=== PATIENT | female | born 2000 | race Caucasian/White ===

== ENCOUNTER 2024-07-28 17:42 | Emergency (ER) | payer OTHER, MEDICAID, SELFPAY ==
[2024-07-28] VITALS (10 sets, daily range): BP systolic 114–129; BP diastolic 64–75; PULSE 77–89; RESP 12–21; TEMP 36.8; O2SAT 100; BMI 36.9
--- NOTE | 2024-07-28 18:45 | EKG_ITS ---
[address] [address] Test Date: 2024-07-28 Pat Name: Anita Thakkar Department: [facility] Room: Gender: Female Mental Health Unit Lead Psychologist: JAMAR : 2000 Requested By: Order Number: [id number] Reading MD: Andrey Vivas Measurements Intervals [place] Rate: 77 P: 39 TX: 158 QRS: 35 QRSD: 80 T: 34 QT: 426 QTc: 482 Interpretive Statements Normal sinus rhythm Prolonged QT Electronically Signed On 07-30-2024 18:05:39 PDT by Andrey Vivas
[2024-07-28 19:39] LABS: Bacteria Urine Many (>30); Culture Indicated Urine Cult Not Indicated; RBC Urine 0-1/HPF (0-5/HPF); Squamous Epithelial Cell Urine 5-10 /HPF (0-5/HPF); Urine Volume 10mL (spun); WBC Urine 0-1/HPF (0-5/HPF)
--- NOTE | 2024-07-28 20:20 | ED.DIZZY ---
HPI - Dizziness General Chief Complaint: Dizziness Stated Complaint: syncope/left ear numbness Time Seen by Provider: 07/28/24 17:57 Source: patient Mode of arrival: EMS History of Present Illness HPI Narrative: Patient is a 24-year-old female without significant history presenting today with a near syncopal episode. She reports that she was feeling well today until she got to work. She was walking down home when she had a near syncopal episode. She felt like she was going to pass out but did not. No significant chest pain or palpitations. She does not feel quite right a little bit lightheaded. She has been eating and drinking normally. Did not feel like she could walk had some tingling. No fever chills. Was complaining of some left ear numbness and irritation. No significant pain or fever Related Data Allergies Allergy/AdvReac Type Severity Reaction Status Date / Time No Known Drug Allergies Allergy Verified 07/28/24 17:57 Patient History Social History Smoking Status: Never smoker Smoking Status: Never smoker alcohol intake frequency: other Substance Use Type: does not use Exam Initial Vital Signs Initial Vital Signs: Vital Signs Temperature 98.3 F 07/28/24 17:52 Pulse Rate 83 07/28/24 17:52 Respiratory Rate 18 07/28/24 17:52 Blood Pressure 128/73 07/28/24 17:52 Pulse Oximetry 100 07/28/24 17:52 Oxygen Delivery Method Room Air 07/28/24 17:52 GENERAL: Alert 24-year-old female and in no acute distress. HEENT: Head atraumatic,EOMI, pupils reactive, face symmetric, moist mucous membranes CARDIOVASCULAR: Regular rate and rhythm without murmurs, rubs or gallops. RESPIRATORY: Breath sounds equal bilaterally, no wheezes rales or rhonchi. ABDOMEN: Soft, nontender. Normoactive bowel sounds all 4 quadrants. No guarding or rebound. EXTREMITIES: Normal range of motion, no clubbing or edema. Neurovascularly intact NEUROLOGICAL: Alert and oriented x4.Normal gait and speech. Cranial nerves II through XII grossly intact. Good [id number], good [id number], strength equal bilaterally, no dysarthria or aphasia, sensation in tact to soft touch bilaterally, no visual changes, no facial droop SKIN: Warm, dry, no laceration, no petechiae, no rashes or lesions. Course Orders Ordered: ED Orders 07/28/24 18:45 EKG-12 Lead Stat 07/28/24 19:18 Urine Microscopic Stat 07/28/24 20:24 Covid-19 + FLU A/B + RSV - PCR Stat 07/28/24 21:14 CBC Auto Diff [Complete Blood Count AUTO DIFF] Stat CMP [Comprehensive Metabolic Panel] Stat Vital Signs Vital signs: Vital Signs - 8 hr 07/28/24 19:00 07/28/24 19:00 07/28/24 19:30 Pulse Rate 81 79 Respiratory Rate 21 19 Blood Pressure 117/64 Pulse Oximetry 100 100 Oxygen Delivery Method 07/28/24 19:30 07/28/24 20:00 07/28/24 20:00 Pulse Rate 79 Respiratory Rate 12 Blood Pressure 114/71 129/75 Pulse Oximetry 100 Oxygen Delivery Method 07/28/24 20:30 07/28/24 21:00 07/28/24 21:30 Pulse Rate 89 83 80 Respiratory Rate 19 20 19 Blood Pressure Pulse Oximetry 100 100 100 Oxygen Delivery Method Room Air 07/28/24 22:00 07/28/24 22:08 Pulse Rate 77 Respiratory Rate 14 Blood Pressure 119/74 Pulse Oximetry 100 Oxygen Delivery Method MDM - Dizziness Lab Data 07/28/24 21:14 07/28/24 21:14 Labs: Lab Results 07/28/24 07/28/24 07/28/24 Range/Units 19:18 20:24 21:14 WBC 7.7 (4.5-11.0) X10^3/uL RBC 4.74 (4.0-5.2) X10^6/uL Hgb 13.6 (12.0-16.0) g/dL Hct 40.8 (36-46) % MCV 86.2 (80-100) fL MCH 28.8 (26-34) PG MCHC 33.3 (30-36) % RDW 13.4 (11.6-14.8) % Plt Count 346 (150-400) X10^3/uL Neut % (Auto) 45.4 L (50-75) % Lymph % (Auto) 46.5 H (25-40) % Rock % (Auto) 7.1 (3-14) % Eos % (Auto) 0.6 L (2-4) % Baso % (Auto) 0.4 (0-2) % Neut # (Auto) 3500 (0216-4622) /uL Lymph # (Auto) 3600 (9640-8213) /uL [place] # (Auto) 500 (0-900) /uL Eos # (Auto) 0 (0-450) /uL Baso # (Auto) 0 (0-100) /uL Sodium 139 (137-145) mmol/L Potassium 3.9 (3.4-5.1) mmol/L Chloride 105 (98-107) mmol/L Carbon Dioxide 25 (22-32) mmol/L BUN 15 (7-17) mg/dL Creatinine 0.70 (0.52-1.04) mg/dL Estimated GFR > 60 (>60) mL/min BUN/Creatinine Ratio 21.4 (6-22) Glucose 83 (70-100) mg/dL Calcium 9.0 (8.4-10.2) mg/dL Total Bilirubin 0.7 (0.2-1.3) mg/dL AST 26 (14-36) IU/L ALT 20 (<35) IU/L Alkaline Phosphatase 97 (38-126) U/L Total Protein 8.2 (6.3-8.2) g/dL Albumin 4.2 (3.5-5.0) g/dL Globulin 4.0 (1.7-4.1) g/dL Albumin/Globulin Ratio 1.1 (1.0-2.8) Urine RBC 0-1/hpf (0-5/HPF) Urine WBC 0-1/hpf (0-5/HPF) Ur Squamous Epith Cells 5-10 /hpf H (0-5/HPF) Urine Bacteria Many (>30) H (None) Ur Culture Indicated? Cult not indicated Vol Urine Centrifuged 10ml (spun) SARS-CoV-2 (PCR) Negative (Negative) Influenza A (RT-PCR) Flu a negative (NEGATIVE) Influenza B (RT-PCR) Flu b negative (NEGATIVE) RSV (PCR) Negative (Negative) Point of Care Testing Test Results Negative Urine Dip Bedside Urine Glucose Negative Bedside Urine Bilirubin - Negative Bedside Urine Ketone - Negative Urine Specific [place] 1.030 Bedside Urine Occult Blood +/- Bedside Urine pH 6.0 Bedside Urine Protein - Negative Bedside Urine Urobilinogen - Negative Bedside Urine Nitrite - Negative Bedside Urine Leukocytes - Negative Esterase ECG Data Attestation: I personally reviewed and interpreted this ECG as follows: Prior ECG tracings: available for review Interpretation: Normal sinus rhythm rate 77 [place] interval 158 QRS [address] changes MDM Narrative Medical decision making narrative: 24-year-old female presenting today with a near syncopal episode. She overall feels weak feels like her legs are work tatyana. She is able with both legs off the gurney equally weak can closing machine tender strength is equal bilaterally. She has no evidence of otitis or infection. Urinalysis is negative viral panel is negative. No leukocytosis or electrolyte abnormality At this time I think she had a near syncopal episode supportive care only Discharge Plan Departure Patient Disposition: Home Clinical Impression: Near syncope Instructions: DI for Syncope in Adults (Fainting) Activity Restrictions/Additional Instructions: *You have been diagnosed with near syncope *What to do: At this time increase fluids eat regularly *Continue to take medications as directed *Follow up with your primary care provider in 2-3 days or call [phone] *Return to ER if you should have recurrent episode of passing out or any new, worsening or concerning symptoms Stand Alone Forms: Patient Portal/API
[2024-07-28 21:04] LABS: Influenza A - CEPHEID Flu A NEGATIVE (NEGATIVE); Influenza B - CEPHEID Flu B NEGATIVE (NEGATIVE); Respiratory Syncytial Virus Negative (Negative)
[2024-07-28 21:19] LABS: COVID-19 CEPHEID 4-PLEX PCR Negative (Negative)
[2024-07-28 21:29] LABS: Add Manual Diff / Slide Review NO; Basophils Absolute Auto 0 /uL (0-100); Basophils Percent Auto 0.4 % (0-2); Eosinophils Absolute Auto 0 /uL (0-450); Eosinophils Percent Auto 0.6 % (2-4); Hematocrit 40.8 % (36-46); Hemoglobin 13.6 g/dL (12.0-16.0); Lymphocytes Absolute Auto 3600 /uL (1100-4500); Lymphocytes Percent Auto 46.5 % (25-40); Mean Corpuscular HGB Conc 33.3 % (30-36); Mean Corpuscular Hemoglobin 28.8 PG (26-34); Mean Corpuscular Volume 86.2 fL (80-100); Monocytes Absolute Auto 500 /uL (0-900); Monocytes Percent Auto 7.1 % (3-14); Neutrophils Absolute Auto 3500 /uL (1500-7000); Neutrophils Percent Auto 45.4 % (50-75); Platelet Count 346 X10^3/uL (150-400); Red Blood Cell Count 4.74 X10^6/uL (4.0-5.2); Red Cell Distribution Width 13.4 % (11.6-14.8); White Blood Cell Count 7.7 X10^3/uL (4.5-11.0)
[2024-07-28 21:51] LABS: Alanine Aminotransferase 20 IU/L (<35); Albumin 4.2 g/dL (3.5-5.0); Albumin Globulin Ratio 1.1 (1.0-2.8); Alkaline Phosphatase 97 U/L (38-126); Aspartate Aminotransferase 26 IU/L (14-36); BUN Creatinine Ratio 21.4 (6-22); Bilirubin Total 0.7 mg/dL (0.2-1.3); Blood Urea Nitrogen 15 mg/dL (7-17); Carbon Dioxide 25 mmol/L (22-32); Chloride 105 mmol/L (98-107); Estimated Glomerular Filt Rate > 60 mL/min (>60); Glucose 83 mg/dL (70-100); HEMOLYSIS < 15 (0-50); Potassium 3.9 mmol/L (3.4-5.1); Sodium 139 mmol/L (137-145); Total Protein 8.2 g/dL (6.3-8.2)
== END 2024-07-28 22:09 | disposition home or self-care (01) ==
PROVIDERS: Emergency Provider Emergency Medicine
DX: R55 Syncope and collapse (principal); R07.9 Chest pain, unspecified; Z11.52 Encounter for screening for COVID-19
CPT/HCPCS: 0241U; 36415; 80053; 81003; 81015; 81025; 85025; 93005; 99283; 99284

== ENCOUNTER 2024-10-15 20:11 | Emergency (ER) | payer OTHER, SELFPAY ==
[2024-10-15 20:15] VITALS: BP 129/84; PULSE 81; RESP 18; TEMP 36.5; O2SAT 98; BMI 36.9
--- NOTE | 2024-10-15 20:36 | DI.US.S_ITS ---
PROCEDURE: US PELVIC COMPLETE INDICATIONS: ABNORMAL BLEEDING TECHNIQUE: Real-time scanning was performed of the pelvic organs, with image documentation. Additional endovaginal scanning was necessary due to incomplete visualization of the adnexal and endometrial structures by transabdominal scanning. COMPARISON: None. FINDINGS: Uterus: Uterus is anteverted and normal in size at 6.7 x 3.7 x 4.9 cm. The myometrium is homogeneous. The endometrium measures 4.1 mm combined thickness. Ovaries: The right ovary measures 3.1 x 2.3 x 2.1 cm, with a calculated ovarian volume of 7.7 cc. The left ovary measures 3.4 x 4.7 x 3.3 cm, with a calculated ovarian volume of 27.6 cc. The ovaries have a normal sonographic appearance. Less than 12 follicles can be seen in each ovary. No adnexal masses are seen. There is a simple left ovarian cyst measuring up to 2.8 cm. Other: No pathologic free abdominal or pelvic fluid. IMPRESSION: Normal pelvic ultrasound. Approved by: Ophelia Floyd M.D.,Ph.D. on 10/15/2024 at 22:36
[2024-10-15 20:59] LABS: Bacteria Urine None Seen; Culture Indicated Urine Cult Not Indicated; RBC Urine 30-100/HPF (0-5/HPF); Squamous Epithelial Cell Urine 1-5 /HPF (0-5/HPF); Urine Volume 10mL (spun); WBC Urine None Seen (0-5/HPF)
[2024-10-15 21:15] LABS: Add Manual Diff / Slide Review NO; Basophils Absolute Auto 0 /uL (0-100); Basophils Percent Auto 0.6 % (0-2); Eosinophils Absolute Auto 100 /uL (0-450); Eosinophils Percent Auto 0.7 % (2-4); Hematocrit 41.1 % (36-46); Hemoglobin 13.7 g/dL (12.0-16.0); Lymphocytes Absolute Auto 3500 /uL (1100-4500); Lymphocytes Percent Auto 47.7 % (25-40); Mean Corpuscular HGB Conc 33.3 % (30-36); Mean Corpuscular Hemoglobin 28.7 PG (26-34); Mean Corpuscular Volume 86.1 fL (80-100); Monocytes Absolute Auto 600 /uL (0-900); Monocytes Percent Auto 7.6 % (3-14); Neutrophils Absolute Auto 3200 /uL (1500-7000); Neutrophils Percent Auto 43.4 % (50-75); Platelet Count 306 X10^3/uL (150-400); Red Blood Cell Count 4.77 X10^6/uL (4.0-5.2); Red Cell Distribution Width 13.1 % (11.6-14.8); White Blood Cell Count 7.3 X10^3/uL (4.5-11.0)
[2024-10-15 21:21] LABS: BUN Creatinine Ratio 17.9 (6-22); Blood Urea Nitrogen 12 mg/dL (7-17); Carbon Dioxide 23 mmol/L (22-32); Chloride 106 mmol/L (98-107); Estimated Glomerular Filt Rate > 60 mL/min (>60); Glucose 89 mg/dL (70-100); HEMOLYSIS < 15 (0-50); Potassium 3.8 mmol/L (3.4-5.1); Sodium 137 mmol/L (137-145)
--- NOTE | 2024-10-15 22:12 | ED_ITS ---
HPI - Female Genitourinary General Chief complaint: Vaginal Bleeding Stated complaint: passing blood clots, abnormal vaginal bleed Time Seen by Provider: 10/15/24 20:15 Source: patient and RN notes reviewed Mode of arrival: Ambulatory Limitations: no limitations History of Present Illness HPI Narrative: 24-year-old female report of vaginal bleeding and abdominal discomfort. Patient states she has had lower abdominal pain bilaterally for the past 3 days. States started out with some brownish discharge and had increasing bleeding today with clots. States she has had an Implanon for 2 years and did not have any bleeding for quite some time but then has had some intermittent spotting and bleeding on and off. She states she did see some clots today. States no back or flank pain. She denies any fevers or chills. She has had some mild nausea no vomiting no issues with bowel movements, she was little bit increased urinary frequency but no dysuria or sense of urgency. Patient states no concerns for STIs. Patient states no daily prescription medications does use an inhaler as needed. Had cholecystectomy 5 years ago. States allergic to morphine and develops difficulty breathing and rash as well as shellfish. Does use tobacco daily, states no regular alcohol, no recreational drugs. Related Data Allergies Allergy/AdvReac Type Severity Reaction Status Date / Time shellfish derived Allergy Severe Anaphylaxis Verified 10/15/24 20:19 morphine Allergy Rash Verified 10/15/24 20:19 Review of Systems Review of Systems ROS Unobtainable: All systems reviewed & are unremarkable except as noted in HPI and below Exam Narrative Exam Narrative: GENERAL: Alert and oriented x three, female in mild distress. HEENT: Head normocephalic, atraumatic, EOMI, pupils reactive, face symmetric, moist mucous membranes NECK: Supple, full range of motion CARDIOVASCULAR: Regular rate and rhythm without murmurs, rubs or gallops. RESPIRATORY: Breath sounds equal bilaterally, no wheezes rales or rhonchi. ABDOMEN: Soft, nontender. Normoactive bowel sounds all 4 quadrants. No guarding or rebound, rigidity, no mass : No CVA tenderness EXTREMITIES: Normal range of motion, no clubbing or edema. Neurovascularly intact NEUROLOGICAL: Cranial nerves II through XII grossly intact. Moving all extremities SKIN: Warm, dry, no petechiae, no rashes or lesions. Initial Vital Signs Initial Vital Signs: Vital Signs Temperature 97.7 F 10/15/24 20:15 Pulse Rate 81 10/15/24 20:15 Respiratory Rate 18 10/15/24 20:15 Blood Pressure 129/84 10/15/24 20:15 Pulse Oximetry 98 10/15/24 20:15 Oxygen Delivery Method Room Air 10/15/24 20:15 Course Orders Ordered: ED Orders 10/15/24 20:30 Urine Microscopic Stat 10/15/24 20:36 US pelvic complete Stat 10/15/24 20:58 Basic Metabolic Panel Stat Complete Blood Count AUTO DIFF Stat Type and Screen Stat Discontinued Medications Acetaminophen (Acetaminophen 325 Mg Tablet) 975 mg PO NOW ONE Stop: 10/15/24 22:24 Last Admin: 10/15/24 22:34 Dose: 975 mg Documented By: SHAYAN Ibuprofen (Ibuprofen 400 Mg Tablet) 800 mg PO NOW ONE Stop: 10/15/24 22:24 Last Admin: 10/15/24 22:34 Dose: 800 mg Documented By: SHAYAN Ondansetron HCl (Ondansetron 4 Mg Odt) 4 mg SL NOW ONE Stop: 10/15/24 22:24 Last Admin: 10/15/24 22:34 Dose: 4 mg Documented By: SHAYAN Vital Signs Vital signs: Vital Signs - 8 hr 10/15/24 20:15 10/15/24 22:59 10/15/24 22:59 Temperature 97.7 F Pulse Rate 81 73 Respiratory Rate 18 Blood Pressure 129/84 110/71 Pulse Oximetry 98 100 Oxygen Delivery Method Room Air 10/15/24 23:00 10/15/24 23:00 Temperature Pulse Rate 69 Respiratory Rate Blood Pressure 109/68 Pulse Oximetry 100 Oxygen Delivery Method MDM - Female Genitourinary Lab Data 10/15/24 20:58 10/15/24 20:58 Labs: Lab Results 10/15/24 10/15/24 Range/Units 20:30 20:58 WBC 7.3 (4.5-11.0) X10^3/uL RBC 4.77 (4.0-5.2) X10^6/uL Hgb 13.7 (12.0-16.0) g/dL Hct 41.1 (36-46) % MCV 86.1 (80-100) fL MCH 28.7 (26-34) PG MCHC 33.3 (30-36) % RDW 13.1 (11.6-14.8) % Plt Count 306 (150-400) X10^3/uL Neut % (Auto) 43.4 L (50-75) % Lymph % (Auto) 47.7 H (25-40) % [place] % (Auto) 7.6 (3-14) % Eos % (Auto) 0.7 L (2-4) % Baso % (Auto) 0.6 (0-2) % Neut # (Auto) 3200 (3579-6739) /uL Lymph # (Auto) 3500 (8805-9232) /uL [place] # (Auto) 600 (0-900) /uL Eos # (Auto) 100 (0-450) /uL Baso # (Auto) 0 (0-100) /uL Sodium 137 (137-145) mmol/L Potassium 3.8 (3.4-5.1) mmol/L Chloride 106 (98-107) mmol/L Carbon Dioxide 23 (22-32) mmol/L BUN 12 (7-17) mg/dL Creatinine 0.67 (0.52-1.04) mg/dL Estimated GFR > 60 (>60) mL/min BUN/Creatinine Ratio 17.9 (6-22) Glucose 89 (70-100) mg/dL Calcium 9.0 (8.4-10.2) mg/dL Urine RBC 30-100/hpf H (0-5/HPF) Urine WBC None seen (0-5/HPF) Ur Squamous Epith Cells 1-5 /hpf (0-5/HPF) Urine Bacteria None seen (None) Ur Culture Indicated? 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 PROCEDURE: US PELVIC COMPLETE INDICATIONS: ABNORMAL BLEEDING TECHNIQUE: Real-time scanning was performed of the pelvic organs, with image documentation. Additional endovaginal scanning was necessary due to incomplete visualization of the adnexal and endometrial structures by transabdominal scanning. COMPARISON: None. FINDINGS: Uterus: Uterus is anteverted and normal in size at 6.7 x 3.7 x 4.9 cm. The myometrium is homogeneous. The endometrium measures 4.1 mm combined thickness. Ovaries: The right ovary measures 3.1 x 2.3 x 2.1 cm, with a calculated ovarian volume of 7.7 cc. The left ovary measures 3.4 x 4.7 x 3.3 cm, with a calculated ovarian volume of 27.6 cc. The ovaries have a normal sonographic appearance. Less than 12 follicles can be seen in each ovary. No adnexal masses are seen. There is a simple left ovarian cyst measuring up to 2.8 cm. Other: No pathologic free abdominal or pelvic fluid. IMPRESSION: Normal pelvic ultrasound. Approved by: Ophelia Floyd M.D.,Ph.D. on 10/15/2024 at 22:36 MDM Narrative Medical decision making narrative: 24-year-old female with history of implant on having floor pelvic cramping and vaginal bleeding. Patient's is negative, urine shows blood no signs of infection, patient is not tachycardic she has appropriate hemoglobin. Notes she has had some issues on and off with bleeding in the past. Patient had ibuprofen about 6 hours prior to arrival. Was somewhat helpful we will give a dose of this we will also give a dose of acetaminophen. Labs show white count of 7.3 hemoglobin 13.7 platelets of 306. Electrolytes are appropriate BUN 12 creatinine 0.67. Point of care urine shows blood, dynamic for nitrates and leukocyte esterase. Microscopy shows 30-100 RBCs no white cells 1-5 squamous no bacteria. Urine is negative. Pelvic US patient has simple left ovarian cyst measuring up to 2.8 cm but otherwise no acute changes. Patient received ibuprofen acetaminophen as well as oral Zofran. Patient feels better. States she was very hungry. She states it is more probably from the ibuprofen and acetaminophen. Offered ondansetron prepack but she defers. Reviewed all of her findings. Discussed with the patient does have left ovarian cyst well as vaginal bleeding. [place] appropriate for discharge home discussed return precautions. Patient states she does have primary care she can follow up with. Discharge Plan Departure Patient Disposition: Home Clinical Impression: Vaginal bleeding, Cyst of left ovary Instructions: DI for Ovarian Cyst Activity Restrictions/Additional Instructions: Follow up with primary care for recheck if you continue to have irregular bleeding. Your workup today did show a left ovarian cyst 0.8 cm this could cause some of your discomfort. If you prefer I did include contact for Gynecology. You can continue with ibuprofen up to 800 mg every 8 hours and/acetaminophen to a 1000 mg every 6 hours as needed for pain Please return for fevers, rapidly worsening symptoms, persistent vomiting, black or bloody stools, lightheadedness or passing out, bleeding through more than a pad an hour or other new or concerning changes. Referrals: Corina Nelson MD [Physician] - Marlen Zamora MD [Primary Care Provider] - Stand Alone Forms: Patient Portal/API/Survey
[2024-10-15] MEDS: ACETAMINOPHEN 325 MG TABLET 975 MG PO (22:34)
[2024-10-15] MEDS: IBUPROFEN 400 MG TABLET 800 MG PO (22:34)
[2024-10-15] MEDS: ONDANSETRON 4 MG ODT SL (22:34)
[2024-10-15 22:59] VITALS: BP 110/71; PULSE 73; O2SAT 100
[2024-10-15 23:00] VITALS: BP 109/68; PULSE 69; O2SAT 100
== END 2024-10-15 23:36 | disposition home or self-care (01) ==
PROVIDERS: Emergency Provider Emergency Medicine; PCP Family Medicine
DX: N83.202 Unspecified ovarian cyst, left side (principal); N93.9 Abnormal uterine and vaginal bleeding, unspecified
CPT/HCPCS: 36415; 76830; 76856; 80048; 81003; 81015; 81025; 85025; 86850; 86900; 86901; 99283; 99284